=== PATIENT | male | born 1990 | race Caucasian/White ===

== ENCOUNTER 2022-02-03 09:38 | Outpatient (CLI) | payer OTHER, SELFPAY ==
--- NOTE | ~2022-02-03 | XR_ITS ---
XR chest 2V DATE: 02/03/2022 10:13 INDICATION: Cough TECHNIQUE: PA and lateral views COMPARISON: None FINDINGS: Bilateral hyperinflation. No pulmonary infiltrate or consolidation, pleural effusion or pul monary vascular congestion or pneumothorax is detected. Normal heart size. No hilar or mediastinal en largement. IMPRESSION: Bilateral hyperinflation; no active cardiopulmonary disease Reviewed, dictated and finalized at location A.
== END 2022-02-03 09:39 ==
DX: R05.9 Cough, unspecified (principal); R91.8 Other nonspecific abnormal finding of lung field
CPT/HCPCS: 71046